=== PATIENT | male | born 2000 | race African-American/Black ===

== ENCOUNTER 2019-06-19 19:02 | Emergency (ER) | payer OTHER | END 2019-06-19 20:44 | disposition left against medical advice (07) | LOC: UCEAST 19:02 | DX: Z53.21 Procedure and treatment not carried out due to patient leaving prior to being seen by health care provider (principal) ==

== ENCOUNTER 2019-06-24 14:55 | Emergency (ER) | payer SELFPAY ==
[2019-06-24 15:43] VITALS: BP 138/65
--- NOTE | 2019-06-24 16:09 | UC ---
Complaint Male HPI - HPI Summary HPI Summary: The patient is a 19 you male with a 2week hx of vague bilateral testicular pain concerned because he had unprotective sex prior to the onset of symptoms no UTI symptoms no urethral d/c no sores on penis no f/c no abd pain no n/v/d - History of Current Complaint Chief Complaint: UCAbdominalPain Stated Complaint: ABDOMINAL PAIN Time Seen by Provider: 06/24/19 15:49 Hx Obtained From: Patient Onset/Duration: Gradual Onset, Lasting Weeks Timing: Constant Severity Initially: Mild Severity Currently: Mild Pain Intensity: 4 Pain Scale Used: 0-10 Numeric Location: Testicle Aggravating Factor(s): Nothing Alleviating Factor(s): Nothing Associated Signs And Symptoms: Negative: Diaphoresis, Back Pain, Fever, Hematuria, Dysuria, Constipation, Blood in Stool, Rectal Pain, Appetite, Nausea , Vomiting(# Of Episodes =), Penile Swelling, Penile Discharge - Allergies/Home Medications Allergies/Adverse Reactions: Allergies Allergy/AdvReac Type Severity Reaction Status Date / Time No Known Allergies Allergy Verified 06/24/19 15:43 Home Medications: Home Medications Divalproex Sodium [Depakote ER] 500 mg PO DAILY 06/24/19 [History Confirmed 10/11] PMH/Surg Hx/FS Hx/Imm Hx Previously Healthy: Yes - Surgical History Surgical History: Yes Surgery Procedure, Year, and Place: circumcision - Family History Known Family History: Positive: Hypertension, Diabetes - Social History Alcohol Use: Rare Substance Use Type: Marijuana Substance Use Comment - Amount & Last Used: sometimes Smoking Status (MU): Current Some Day Smoker Amount Used/How Often: occasional Have You Smoked in the Last Year: No - Immunization History Vaccination Up to Date: Yes Review of Systems All Other Systems Reviewed And Are Negative: Yes Constitutional: Positive: Negative Skin: Positive: Negative Eyes: Positive: Negative ENT: Positive: Negative Respiratory: Positive: Negative Cardiovascular: Positive: Negative Gastrointestinal: Positive: Negative Genitourinary: Negative: Dysuria, Hematuria, Frequency, Urgency, Vaginal/Penile Burning, Vaginal/Penile Itching, Vaginal/Penile Discharge, Vaginal/Penile Pain, Vaginal/Penile Tenderness, Ulceration/Lesion, Abnormal Bleeding Motor: Positive: Negative Neurovascular: Positive: Negative Musculoskeletal: Positive: Negative Neurological: Positive: Negative Psychological: Positive: Negative Physical Exam Triage Information Reviewed: Yes Appearance: No Pain Distress, Well-Nourished Vital Signs: Initial Vital Signs Temp 97.9 F 06/24/19 15:35 Pulse 68 06/24/19 15:35 Resp 16 06/24/19 15:35 BP 138/65 06/24/19 15:35 Pulse Ox 100 06/24/19 15:35 Vital Signs Reviewed: Yes Eyes: Positive: Conjunctiva Clear ENT: Positive: Hearing grossly normal. Negative: Nasal congestion, Nasal drainage, Trismus, Muffled voice, Dental tenderness Dental Exam: Normal Neck: Positive: Nontender, No Lymphadenopathy Respiratory: Positive: Lungs clear, Normal breath sounds, No respiratory distress, No accessory muscle use Cardiovascular: Positive: RRR, No Murmur Abdomen Description: Positive: Nontender, No Organomegaly, Soft. Negative: CVA Tenderness (R), CVA Tenderness (L) Bowel Sounds: Positive: Present Male Genital Exam: Positive: Normal Genitalia, No Hernia. Negative: Epididymal Tenderness, Scrotum Tenderness (R), Scrotum Tenderness (L), Testicular Tenderness (R), Testicular Tenderness (L), Urethral Discharge Musculoskeletal: Positive: ROM Intact, No Edema Neurological: Positive: Alert Psychological Exam: Normal Skin Exam: Normal Complaint Male Course/Dx - Differential Dx/Diagnosis Provider Diagnosis: Testicular discomfort Discharge ED - Sign-Out/Discharge Documenting (check all that apply): Patient Departure All imaging exams completed and their final reports reviewed: No Studies - Discharge Plan Condition: Stable Disposition: HOME Patient Education Materials: Epididymitis (ED) Referrals: Theo Russell MD [Medical Doctor] - 5 Days (recheck in 5-10 days if not better) Additional Instructions: we will treat you for possible epidydimitis - Billing Disposition and Condition Condition: STABLE Disposition: Home
[2019-06-26 13:28] LABS: Chlamydia trachomatis NAA Negative (Negative); Neisseria gonorrhoeae (GC) NAA Negative (Negative)
== END 2019-06-24 16:45 | disposition home or self-care (01) ==
LOC: UCEAST 14:55
DX: N50.812 Left testicular pain (principal); N50.811 Right testicular pain; R10.9 Unspecified abdominal pain; F17.200 Nicotine dependence, unspecified, uncomplicated
CPT/HCPCS: 81003; 87491; 87591; 99212; G0463

== ENCOUNTER 2020-11-29 14:13 | Inpatient (IN) ==
[2020-11-29] MEDS ORDERED: LORazepam 2 mg VIAL 1 ml ONE (14:21)
[2020-11-29] MEDS ORDERED: NS 0.9% 1000 ml BAG 1,000 ML IV ONE ×2 (14:35→16:12)
[2020-11-29 15:11] LABS: ABS Lymphocytes 1.4 10^3/ul (1.0-4.8); ABS Monocytes 0.6 10^3/ul (0-0.8); ABS Neutrophils 6.2 10^3/ul (1.5-7.7); Eosinophil % 0.6 %; Hematocrit 38 % (42-52); Hemoglobin 13.2 g/dL (14.0-18.0); Lymphocyte % 17.2 %; Mean Corpuscular HGB Conc 35 g/dL (31-36); Mean Corpuscular Hemoglobin 28 pg (27-31); Mean Corpuscular Volume 82 fL (80-94); Mean Platelet Volume 7.7 fL (7.4-10.4); Platelet Count 282 10^3/uL (150-450); Red Blood Count 4.65 10^6 /uL (4.18-5.48); Red Cell Distribution Width 14 % (10-15); White Blood Count 8.3 10^3/uL (3.5-10.8)
[2020-11-29 15:37] LABS: ALT 39 U/L (7-52); AST 77 U/L (13-39); Albumin 4.6 g/dL (3.2-5.2); Alkaline Phosphatase 57 U/L (34-104); Anion Gap 13 mmol/L (2-11); BUN/Creatinine Ratio 8.7 (8-20); Blood Urea Nitrogen 10 mg/dL (6-24); CO2 Carbon Dioxide 20 mmol/L (22-32); Calcium 9.5 mg/dL (8.6-10.3); Chloride 102 mmol/L (101-111); EGFR African American 96.2 (>60); EGFR Non-African American 79.5 (>60); Globulin 2.3 g/dL (2-4); Glucose 125 mg/dL (70-100); Potassium 3.2 mmol/L (3.5-5.0); Sodium 135 mmol/L (135-145); Total Protein 6.9 g/dL (6.4-8.9)
[2020-11-29 15:49] LABS: Acetaminophen < 15 mcg/mL; Alcohol, S < 10 mg/dL (<10); Salicylate < 2.50 mg/dL (<30)
[2020-11-29 15:56] LABS: Creatine Kinase 2665 U/L (10-223)
[2020-11-29 17:20] LABS: Urine Appearance Clear; Urine Bilirubin Negative (Negative); Urine Blood Negative (Negative); Urine Color Straw; Urine Glucose Negative (Negative); Urine Ketones Negative (Negative); Urine Nitrite Negative (Negative); Urine Protein Negative (Negative); Urine Specific Gravity 1.001 (1.002-1.030); Urine Urobilinogen Negative (Negative)
[2020-11-29 17:44] LABS: Urine Benzodiazepine Screen None Detected (None Detect); Urine Cannabinoids Screen Presumptive Positive (None Detect); Urine Opiates Screen None Detected (None Detect)
[2020-11-30] MEDS ORDERED: Al Hydrox/Mg Hydrox/Simet LIQ 30 ML UDC PO PRN (02:34)
[2020-11-30] MEDS ORDERED: Nicotine GUM 2MG FRUIT FLAVOR PO PRN (03:00)
[2020-11-30] MEDS: Vitamin THERAPEUTIC TAB PO SCH (09:45)
[2020-11-30] MEDS ORDERED: NS 0.9% 1000 ml BAG 1,000 ML IV SCH (10:15)
[2020-11-30] MEDS: NS 0.9% 1000 ml BAG 1,000 ML IV SCH ×2 (15:23→18:47)
[2020-11-30 22:52] LABS: EGFR African American 113.1 (>60); EGFR Non-African American 93.4 (>60); Potassium 3.8 mmol/L (3.5-5.0)
[2020-12-01] MEDS: Vitamin THERAPEUTIC TAB PO SCH (09:36)
[2020-12-01] MEDS ORDERED: diPHENhydraMINE IV 50 MG/ML 1 ml VIAL (BENADRYL) ONE (14:24)
[2020-12-01] MEDS ORDERED: Haloperidol 5 mg/ml SDV IV/IM 5 MG/ML AMP ONE (14:24)
[2020-12-01] MEDS ORDERED: LORazepam 2 mg VIAL 1 ml ONE (14:24)
[2020-12-01] MEDS ORDERED: LORazepam 2 mg VIAL 1 ml IM ONE (14:43)
[2020-12-01] MEDS ORDERED: Lorazepam PYXIS KEY PRN (14:59)
[2020-12-02] MEDS: Vitamin THERAPEUTIC TAB PO SCH (09:51)
[2020-12-03 08:55] LABS: HDL Cholesterol 49.3 mg/dL
[2020-12-03] MEDS: Vitamin THERAPEUTIC TAB PO SCH (10:37)
[2020-12-04] MEDS: Vitamin THERAPEUTIC TAB PO SCH (09:05)
[2020-12-04] MEDS ORDERED: Calcium Carb (TUMS) 500 mg CHEW TAB PO PRN (17:48)
[2020-12-05] MEDS: Vitamin THERAPEUTIC TAB PO SCH (08:21)
[2020-12-05 11:00] VITALS: BP 141/73
== END 2020-12-05 12:00 | disposition home or self-care (01) | DRG 753 ==
LOC: EDBD → ED 14:13 → MERGE 11-30 02:29 → BSU 11-30 02:29
PROVIDERS: ADMIT Psychiatry & Neurology Psychiatry; ATTEND Psychiatry & Neurology Psychiatry

== ENCOUNTER 2020-12-05 15:11 | Inpatient (IN) ==
[2020-12-05 16:20] LABS: Urine Appearance Clear; Urine Bilirubin Negative (Negative); Urine Blood Negative (Negative); Urine Color Straw; Urine Glucose Negative (Negative); Urine Ketones Negative (Negative); Urine Nitrite Negative (Negative); Urine Protein Negative (Negative); Urine Specific Gravity 1.003 (1.002-1.030); Urine Urobilinogen Negative (Negative)
[2020-12-05 16:22] LABS: ABS Basophils 0.1 10^3/ul (0-0.2); ABS Eosinophils 0.1 10^3/ul (0-0.6); ABS Lymphocytes 2.6 10^3/ul (1.0-4.8); ABS Monocytes 0.6 10^3/ul (0-0.8); ABS Neutrophils 3.9 10^3/ul (1.5-7.7); Eosinophil % 1.1 %; Hematocrit 43 % (42-52); Hemoglobin 13.9 g/dL (14.0-18.0); Lymphocyte % 35.3 %; Mean Corpuscular HGB Conc 33 g/dL (31-36); Mean Corpuscular Hemoglobin 28 pg (27-31); Mean Corpuscular Volume 84 fL (80-94); Platelet Count 334 10^3/uL (150-450); Red Blood Count 5.05 10^6 /uL (4.18-5.48); Red Cell Distribution Width 14 % (10-15); White Blood Count 7.2 10^3/uL (3.5-10.8)
[2020-12-05 16:32] LABS: ALT 51 U/L (7-52); AST 53 U/L (13-39); Albumin 4.9 g/dL (3.2-5.2); Albumin/Globulin Ratio 1.7 (1-3); Alkaline Phosphatase 60 U/L (34-104); Anion Gap 7 mmol/L (2-11); BUN/Creatinine Ratio 13.6 (8-20); Blood Urea Nitrogen 14 mg/dL (6-24); CO2 Carbon Dioxide 26 mmol/L (22-32); Calcium 9.9 mg/dL (8.6-10.3); Chloride 100 mmol/L (101-111); EGFR African American 109.3 (>60); EGFR Non-African American 90.3 (>60); Globulin 2.9 g/dL (2-4); Glucose 87 mg/dL (70-100); Potassium 3.8 mmol/L (3.5-5.0); Sodium 133 mmol/L (135-145); Total Protein 7.8 g/dL (6.4-8.9)
[2020-12-05 16:34] LABS: Urine Benzodiazepine Screen None Detected (None Detect); Urine Cannabinoids Screen None Detected (None Detect); Urine Opiates Screen None Detected (None Detect)
[2020-12-05 17:14] LABS: Acetaminophen < 15 mcg/mL; Alcohol, S < 10 mg/dL (<10); Salicylate < 2.50 mg/dL (<30)
[2020-12-05] MEDS ORDERED: Al Hydrox/Mg Hydrox/Simet LIQ 30 ML UDC PO PRN (17:20)
[2020-12-05 17:28] LABS: TSH Ultra Thyroid Stim Horm 1.37 mcIU/mL (0.34-5.60)
[2020-12-06] MEDS: Vitamin THERAPEUTIC TAB PO SCH ×2 (00:05→09:29)
[2020-12-06] MEDS ORDERED: Oxymetazoline 0.05% NASAL SPR 15 ML BTL BOTH NARES ONE (12:09)
[2020-12-06] MEDS: Saline NASAL SPRAY 0.65% BTL BOTH NARES PRN ×2 (15:51→22:35)
[2020-12-07] MEDS: Saline NASAL SPRAY 0.65% BTL BOTH NARES PRN ×2 (08:33→20:51)
[2020-12-07] MEDS: Vitamin THERAPEUTIC TAB PO SCH (09:53)
[2020-12-07] MEDS ORDERED: Oxymetazoline 0.05% NASAL SPR 15 ML BTL LEFT NARE PRN (21:40)
[2020-12-08] MEDS: Oxymetazoline 0.05% NASAL SPR 15 ML BTL BOTH NARES PRN ×2 (02:15→20:19)
[2020-12-08] MEDS: Vitamin THERAPEUTIC TAB PO SCH (08:46)
[2020-12-08] MEDS: Saline NASAL SPRAY 0.65% BTL BOTH NARES PRN (18:08)
[2020-12-09] MEDS: Vitamin THERAPEUTIC TAB PO SCH (07:32)
[2020-12-09] MEDS: Oxymetazoline 0.05% NASAL SPR 15 ML BTL BOTH NARES PRN (07:32)
[2020-12-09] MEDS: Saline NASAL SPRAY 0.65% BTL BOTH NARES PRN (09:19)
[2020-12-10] MEDS: Vitamin THERAPEUTIC TAB PO SCH (09:09)
[2020-12-10] MEDS: Oxymetazoline 0.05% NASAL SPR 15 ML BTL BOTH NARES PRN ×2 (09:12→20:37)
[2020-12-10 09:25] LABS: Albumin 4.7 g/dL (3.2-5.2); Albumin/Globulin Ratio 1.7 (1-3); EGFR African American 105.7 (>60); EGFR Non-African American 87.4 (>60); Globulin 2.8 g/dL (2-4); Total Bilirubin 0.4 mg/dL (0.2-1.0); Total Protein 7.5 g/dL (6.4-8.9)
[2020-12-10 11:58] LABS: Potassium 4.2 mmol/L (3.5-5.0)
[2020-12-10] MEDS: CMCS: OMEGA-3 FATTY ACID 1000 mg(NF) PO SCH (12:03)
[2020-12-10] MEDS: Saline NASAL SPRAY 0.65% BTL BOTH NARES PRN (12:04)
[2020-12-11] MEDS: CMCS: OMEGA-3 FATTY ACID 1000 mg(NF) PO SCH (09:13)
[2020-12-11] MEDS: Vitamin THERAPEUTIC TAB PO SCH (09:14)
[2020-12-11] MEDS: Lithium Carbonate ER 450mg TAB PO SCH (21:15)
[2020-12-11] MEDS: Oxymetazoline 0.05% NASAL SPR 15 ML BTL BOTH NARES PRN (21:50)
[2020-12-12] MEDS: Lithium Carbonate ER 450mg TAB PO SCH ×2 (09:13→22:12)
[2020-12-12] MEDS: Vitamin THERAPEUTIC TAB PO SCH (09:13)
[2020-12-12] MEDS: CMCS: OMEGA-3 FATTY ACID 1000 mg(NF) PO SCH (09:14)
[2020-12-12] MEDS: Oxymetazoline 0.05% NASAL SPR 15 ML BTL BOTH NARES PRN (14:59)
[2020-12-13 08:16] VITALS: BP 145/71
[2020-12-13] MEDS: Lithium Carbonate ER 450mg TAB PO SCH (09:42)
[2020-12-13] MEDS: Vitamin THERAPEUTIC TAB PO SCH (09:42)
[2020-12-13] MEDS: CMCS: OMEGA-3 FATTY ACID 1000 mg(NF) PO SCH (09:43)
[2020-12-13] MEDS: Oxymetazoline 0.05% NASAL SPR 15 ML BTL BOTH NARES PRN (10:38)
== END 2020-12-13 11:30 | disposition home or self-care (01) | DRG 753 ==
LOC: ED 15:11 → BSU 22:25
PROVIDERS: ADMIT Psychiatry & Neurology Psychiatry; ATTEND Psychiatry & Neurology Psychiatry